=== PATIENT | male | born 1940 | race Caucasian/White ===

== ENCOUNTER 2017-01-26 18:45 | Emergency (ER) | payer OTHER ==
[2017-01-26 19:56] LABS: SPECIFIC GRAVITY 1.015 (1.001-1.030); URINE BILIRUBIN NEGATIVE (NEGATIVE); URINE BLOOD TRACE (NEGATIVE); URINE GLUCOSE (UA) NEGATIVE (NEGATIVE); URINE LEUKOCYTE ESTERASE NEGATIVE (NEGATIVE); URINE NITRITE NEGATIVE (NEGATIVE); URINE PROTEIN NEGATIVE (NEGATIVE); URINE UROBILINOGEN NORMAL (0-1 mg/dl)
[2017-01-26 20:17] LABS: URINE APPEARANCE CLEAR; URINE COLOR YELLOW
[2017-01-26] MEDS ORDERED: CEPHALEXIN 250 MG CAPSULE ONE (20:32)
[2017-01-26 20:33] LABS: URINE BACTERIA 0; URINE EPITHELIAL CELLS 0 /hpf; URINE RBC 0-2 /hpf; URINE WBC 0-2 /hpf
== END 2017-01-26 20:45 | disposition home or self-care (01) ==
LOC: ED 18:45
DX: R30.0 Dysuria (principal); N40.0 Benign prostatic hyperplasia without lower urinary tract symptoms; I10 Essential (primary) hypertension

== ENCOUNTER 2017-02-10 14:46 | Emergency (ER) | payer OTHER ==
[2017-02-10] MEDS ORDERED: ONDANSETRON 4 MG/2ML 2 ML VIAL ONE (15:55)
[2017-02-10] MEDS ORDERED: SODIUM CHLORIDE 0.9% 1,000 ML ONE (15:55)
[2017-02-10] MEDS ORDERED: PANTOPRAZOLE SODIUM 40 MG VIAL IV ONE (15:55)
[2017-02-10] MEDS ORDERED: HYDROMORPHONE HCL 1 MG/ML SYRINGE ONE ×3 (15:55→18:27)
[2017-02-10 16:12] LABS: BASO % 0.2 % (0.2-1.0); HEMATOCRIT 40.3 % (32.0-52.0); HEMOGLOBIN 13.3 gm/l (14.0-18.0); IMM NEUT # 0.3 K/mm3 (0-0.2); IMM NEUT% 1.3 % (0-1); LYMPH % 4.6 % (15-45); MEAN CELL VOLUME 89.8 fl (80.0-94.0); MEAN CORPUSCULAR HEMOGLOBIN 29.6 pg (27.0-31.0); MONO # 1.3 (0.0-0.8); MONO % 6.2 % (4-12); NEUT % 87.7 % (43-75); PLATELET COUNT 242 K/mm3 (130-400); RED CELL DISTRIBUTION WIDTH 12.8 % (11.5-14.5)
[2017-02-10 16:13] LABS: SPECIFIC GRAVITY 1.015 (1.001-1.030); URINE BILIRUBIN NEGATIVE (NEGATIVE); URINE BLOOD 2+ (NEGATIVE); URINE GLUCOSE (UA) NEGATIVE (NEGATIVE); URINE LEUKOCYTE ESTERASE 2+ (NEGATIVE); URINE NITRITE POSITIVE (NEGATIVE); URINE PROTEIN 2+ (NEGATIVE); URINE UROBILINOGEN NORMAL (0-1 mg/dl)
[2017-02-10 16:20] LABS: URINE APPEARANCE SL CLOUDY; URINE COLOR YELLOW
[2017-02-10 16:21] LABS: ALB/GLOB RATIO 1.5 (>1.0); ALBUMIN 4.4 gm/dL (3.5-5.7); CALCIUM 9.5 mg/dL (8.6-10.3)
[2017-02-10] MEDS ORDERED: CEFTRIAXONE 1 GRAM DUPLEX 50 ML IV ONE (16:24)
[2017-02-10 16:34] LABS: URINE WBC >100 /hpf
[2017-02-10 16:35] LABS: URINE BACTERIA 3+; URINE EPITHELIAL CELLS 0-2 /hpf
[2017-02-10] MEDS: IOPAMIDOL 370 (76%) 100 ML VIAL IV ONE (17:03)
--- NOTE | 2017-02-10 17:31 | CT ---
ABD/PELVIS W/ CON COMPARISON: CT abdomen and pelvis, 08/21/2009 HISTORY: Upper abdominal pain, back pain, and urinary tract infection. Technique: Contrast oral contrast. Intravenous injection contrast 100 mL Isovue 370. Using a [employer] Aquilion [address] scanner, images were obtained from the diaphragm to the floor the pelvis. An automated dose reduction technique was used to minimize patient radiation dose. Dose information: CTDIvol (mGy): 8.00 DLP(mGycm): 1051.80 FINDINGS: Lung bases: Scar or subsegmental atelectasis in the left lower lobe base. Inferior mediastinum and heart: Aortic annular calcification. Liver: Multiple 2.4 cm and multiple much smaller nonenhancing foci, most likely cysts. Gallbladder:Normal. Bile ducts: Normal. Pancreas: Normal. Spleen: Normal. Adrenal glands: Mild hypertrophy of the left adrenal gland. Normal right adrenal gland Kidneys: Normal enhancement of the right kidney. No hydronephrosis. Lower pole parapelvic cyst. Somewhat heterogeneous enhancement of the interpolar left kidney. Small simple cysts in the lower pole. Edema in the perinephric fat. Ureters: Normal Urinary bladder: Normal. Prostate gland and seminal vesicles: Normal. Blood vessels: Normal Lymph nodes: Normal Stomach: Normal Duodenum: Normal Small intestine: Normal Appendix: Removed. Colon: Normal Abdominal wall and supporting musculature: Small umbilical hernia containing fat. Bones: No acute finding. Degenerative changes. IMPRESSION: 1. CT findings evidence of pyelonephritis of the left kidney. 2. Incidentally noted hepatic and bilateral renal cysts, hypertrophy of the left adrenal gland, small umbilical hernia containing fat, aortic annular calcification, and degenerative changes in the spine. The report was sent to the emergency department electronic medical record system, 02/10/2017 at 17:32
[2017-02-10 18:19] LABS: BAND 2 % (0-10); BASOPHIL 0 % (0-1); EOSINOPHIL 0 % (1-3); LYMPHOCYTE 2 % (15-45); MONOCYTE 8 % (4-12); NEUTROPHILS 88 % (43-75); PLATELET ESTIMATE NORMAL (NORMAL); TOTAL CELLS COUNTED 100
== END 2017-02-10 18:55 | disposition home or self-care (01) ==
LOC: ED 14:46
DX: N12 Tubulo-interstitial nephritis, not specified as acute or chronic (principal); I10 Essential (primary) hypertension
CPT/HCPCS: 83605; 83690; 85025; 87040 ×2; 80053; 81001; 74177; 96375 ×3; 96376; 99284 ×2; 96365; 36415; J1170 ×3; C9113; J2405; J7030; Q9967; J0696

== ENCOUNTER 2017-02-11 20:27 | Inpatient (IN) | payer OTHER ==
[2017-02-11 21:37] LABS: ABSOLUTE NEUTROPHIL COUNT 15.2 K/mm3 (1.8-7.7); BASO % 0.2 % (0.2-1.0); EOS # 0.1 (0.0-0.5); EOS % 0.6 % (0.9-2.9); HEMATOCRIT 36.6 % (32.0-52.0); HEMOGLOBIN 12.2 gm/l (14.0-18.0); IMM NEUT # 0.1 K/mm3 (0-0.2); IMM NEUT% 0.7 % (0-1); LYMPH # 0.8 (1.0-4.8); LYMPH % 4.6 % (15-45); MEAN CELL VOLUME 89.9 fl (80.0-94.0); MEAN CORPUSCULAR HGB CONC 33.3 g/dl (33.0-37.0); MEAN PLATELET VOLUME 9.2 fl (7.4-10.4); MONO # 0.9 (0.0-0.8); MONO % 5.1 % (4-12); NEUT % 88.8 % (43-75); PLATELET COUNT 198 K/mm3 (130-400); RED CELL DISTRIBUTION WIDTH 12.8 % (11.5-14.5)
[2017-02-11] MEDS ORDERED: LACTATED RINGERS 1,000 ML ONE (21:39)
[2017-02-11] MEDS ORDERED: OXYCODONE HCL 5 MG TABLET ONE ×2 (21:39→21:57)
[2017-02-11 21:47] LABS: ALB/GLOB RATIO 1.3 (>1.0); CALCIUM 8.9 mg/dL (8.6-10.3)
[2017-02-11] MEDS ORDERED: PIPERACILLIN-TAZO PREMIX BAG 50 ML IV ONE (22:12)
[2017-02-11] MEDS ORDERED: SODIUM CHLORIDE 0.9% FLUSH 10 ML ONE (23:36)
[2017-02-11 23:44] VITALS: BMI 32.1
[2017-02-12] MEDS ORDERED: BLISTEX LIPSTICK 1 EACH TP PRN (00:48)
[2017-02-12] MEDS ORDERED: MENTHOL/CETYLPYRD 1 EACH LOZENGE PO PRN (00:48)
[2017-02-12] MEDS ORDERED: MAGNESIUM HYDROXIDE 30 ML UDCUP PO PRN (00:48)
[2017-02-12] MEDS ORDERED: SODIUM CHLORIDE 0.9% 100 ML IV PRN (00:48)
[2017-02-12] MEDS ORDERED: BISACODYL 10 MG SUP PR PRN (00:48)
[2017-02-12] MEDS ORDERED: BISACODYL 5 MG TABLET.EC PO PRN (00:48)
[2017-02-12] MEDS ORDERED: TRAZODONE HCL 50 MG TABLET PO PRN (00:50)
[2017-02-12] MEDS ORDERED: ONDANSETRON 4 MG/2ML 2 ML VIAL IV PRN (00:52)
[2017-02-12] MEDS ORDERED: PUMP TUBING ONE (01:41)
[2017-02-12] MEDS: SODIUM CHLORIDE 0.9% 1,000 ML IV SCH ×3 (01:47→18:22)
[2017-02-12] MEDS ORDERED: PIPERACILLIN-TAZO PREMIX BAG 50 ML IV ONE (03:32)
[2017-02-12] MEDS ORDERED: PIPERACILLIN-TAZO PREMIX BAG 3.375 G in Premix (D5W) 50 ml 1 EACH IV SCH (06:00)
[2017-02-12] MEDS ORDERED: LEVOTHYROXINE SODIUM 175 MCG TABLET PO SCH ×2 (06:00→12:06)
--- NOTE | 2017-02-12 07:36 | HP ---
Chong Sharma Jr : 1940 CHIEF COMPLAINT: Not feeling well. HISTORY OF PRESENT ILLNESS: The patient is a 76-year-old male who has not been feeling well for the past several days. He was evaluated yesterday and found to have a urinary tract infection and was provided prescription for Keflex, Zofran, and Percocet. His symptoms did not improve. He has got back pain, abdominal pain, nausea, and headaches. Over the past day his symptoms have not improved and then today he received a phone call that he needed to return to the emergency department because he had a positive blood culture. Currently his symptoms in the prior two days have not improved and he continues to have a headache, body aches, abdominal pain, and nausea. His appetite is good however. There has been some difficulty with urination just that it is harder to go, not so much burning. He denies any fevers. REVIEW OF SYSTEMS: General: Body aches, not feeling well. No fevers. ENT: Sinus congestion that is chronic. No throat pain. Cardiovascular: No chest pain or pressure. Respiratory: No difficulty in breathing. Abdomen: Abdominal pain and nausea, no vomiting. : Pain with urination. Musculoskeletal: Back pain. Neurologic: Headache. PAST MEDICAL HISTORY: Includes hypothyroidism, aortic valve, benign prostatic hypertrophy, chronic kidney disease stage III, bipolar, hypertension, hearing loss, herniated lumbar disc, hyperlipidemia, insomnia, restless legs. MEDICATIONS: Include: 1. Levothyroxine. 2. MS Contin. 3. Oxycodone. 4. Tizanidine. 5. Mirapex. 6. Trazodone. 7. Tamsulosin. 8. Gabapentin. 9. Furosemide. 10. Losartan. 11. Pravastatin. 12. Effexor. 13. Dorzolamide solution. 14. Metoprolol. PAST SURGICAL HISTORY: Includes an appendectomy, hernia repair, lumbar fusion, aortic valve replacement, cataract surgery. FAMILY MEDICAL HISTORY: Includes diabetes and heart disease. SOCIAL HISTORY: He lives with his spouse. He has a sister in the area. He does have children. No alcohol, tobacco, or drugs. He quit smoking in the past. 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 ALLERGIES: TAPE AND LYRICA. PHYSICAL EXAMINATION: VITAL SIGNS: Temperature 98.5, heart rate 76, blood pressure 121/62, saturating 96% on room air. GENERAL: He is alert and oriented in no acute distress. HEENT: Normocephalic, atraumatic. No tenderness to palpation. His mucous membranes are moist. Pupils are equal, round, and reactive. Extraocular muscles intact. There is no scleral icterus or conjunctival injection. NECK: Supple. Trachea is midline. CARDIOVASCULAR: Regular, positive S1, S2 He has peripheral pulses bilaterally PT and radially. No peripheral edema. RESPIRATORY: Clear to auscultation bilaterally. No rhonchi or wheezing. ABDOMEN: Tender, soft, no rebound, no guarding, slight distention. MUSCULOSKELETAL: He is moving all extremities without difficulty. They are nontender. He has left greater than right CVA tenderness. NEUROLOGIC: He is alert and oriented. LABORATORY STUDIES: Sodium 135, potassium 4.0, chloride 103, carbon dioxide 22, BUN 36, creatinine 1.9, glucose 120. White blood count 17.1, hemoglobin 12.2, hematocrit 36.6, platelet count of 198. VBG lactate is 0.8. DIAGNOSTICS: CT of abdomen and pelvis was obtained evidence of pyelonephritis to the left kidney, hepatic and bilateral renal cyst, hypertrophy of the left adrenal glands, umbilical hernia containing fat, aortic annular calcifications, and degenerative changes of the spine. ASSESSMENT AND PLAN: A 76-year-old male with pyelonephritis and bacteremia was called to return for further therapeutic intervention today. He is provided with a dose of Zosyn, pain medication, and IV fluids in the emergency department. 1. Sepsis, not severe. He does have an elevated white count, a slightly elevated creatinine from his baseline. He has Gram negative bacilli in his blood cultures and evidence of pyelonephritis on CT. We will continue to provide Zosyn until we have sensitivities from the blood culture from the Gram negative bacilli. 2. Chronic kidney disease stage III. He has a slight bump in his creatinine currently at 1.9. We will give him IV fluids and monitor. 3. Pyelonephritis. We will continue Zosyn and monitor for symptoms improvement. 4. Aortic valve replacement, stable. He has no evidence or complaints of chest pain at this time. 5. Hypertension. We will continue his home medications, stable. 6. Hypothyroidism. We will continue his home medications. 7. Chronic pain from lumbar disc disease. We will continue his home medications. 8. Benign prostatic hypertrophy, stable. May be contributing to difficulty with urination, will monitor. Patient is a do not resuscitate. JOB: [id number] CC: Dr. Maguire
--- NOTE | 2017-02-12 07:52 | PDOC36 ---
Provider Note Subject: Patient feeling slightly improved since admission, no longer nauseous but continues to have pain. It is difficult to determine if his pain is acute on chronic or chronic in nature. For his headache, he takes sumatriptan and would like some of this. He has pyelonpehritis and bacteremia with gram negative bacilli
[2017-02-12] MEDS ORDERED: SUMATRIPTAN SUCCINATE 50 MG TABLET PO PRN (08:00)
[2017-02-12] MEDS ORDERED: MORPHINE SULFATE 15 MG PO SCH (09:00)
[2017-02-12] MEDS ORDERED: LEVOTHYROXINE SODIUM 150 MCG TABLET PO SCH (09:00)
[2017-02-12] MEDS: GABAPENTIN 100 MG CAPSULE PO SCH ×2 (09:08→20:56)
[2017-02-12] MEDS: GEMFIBROZIL 600 MG TABLET PO SCH (09:08)
[2017-02-12] MEDS: ASPIRIN CHEWTAB 81 MG TABLET PO SCH (09:08)
[2017-02-12] MEDS: LOSARTAN POTASSIUM 50 MG TABLET PO SCH (09:09)
[2017-02-12] MEDS: DOCUSATE SODIUM 100 MG CAPSULE PO SCH ×2 (09:09→20:56)
[2017-02-12] MEDS: FUROSEMIDE 40 MG TABLET PO SCH (09:09)
[2017-02-12] MEDS: TAMSULOSIN HCL 0.4 MG CAPSULE.DR PO SCH (09:09)
[2017-02-12] MEDS: MORPHINE SULFATE 15 MG TAB.PRT.SR PO SCH (09:09)
[2017-02-12] MEDS: LATANOPROST 0.005% 50 GTTS/2.5 ML BOT SOLN.DROP OU SCH ×2 (09:19→20:58)
[2017-02-12] MEDS: TIZANIDINE HCL 4 MG TABLET PO SCH ×3 (09:20→20:56)
[2017-02-12] MEDS: VENLAFAXINE HCL XR 150 MG CAPSULE.DR PO SCH (09:20)
[2017-02-12] MEDS: METOPROLOL SUCCINATE 25 MG TAB.ER.24H PO SCH ×2 (09:20→20:56)
[2017-02-12] MEDS: PRAMIPEXOLE DI-HCL 0.25 MG TABLET PO SCH (09:20)
[2017-02-12] MEDS: PRAVASTATIN SODIUM 40 MG TABLET PO SCH (09:20)
[2017-02-12 09:36] LABS: CALCIUM 8.5 mg/dL (8.6-10.3); HEMATOCRIT 35.1 % (32.0-52.0); HEMOGLOBIN 11.4 gm/l (14.0-18.0); MEAN CELL VOLUME 92.1 fl (80.0-94.0); MEAN CORPUSCULAR HEMOGLOBIN 29.9 pg (27.0-31.0); MEAN CORPUSCULAR HGB CONC 32.5 g/dl (33.0-37.0); RED CELL DISTRIBUTION WIDTH 12.9 % (11.5-14.5)
[2017-02-12] MEDS: OXYCODONE HCL 5 MG TABLET PO PRN (11:53)
[2017-02-12] MEDS: ACETAMINOPHEN 325 MG TABLET PO PRN ×2 (11:53→19:32)
[2017-02-12] MEDS: PIPERACILLIN-TAZO PREMIX BAG 3.375 G in Premix (D5W) 50 ml 1 EACH IV SCH ×3 (11:53→23:58)
[2017-02-12] MEDS: SUMATRIPTAN SUCCINATE 50 MG TABLET PO PRN ×2 (12:08→19:28)
[2017-02-12] MEDS: LEVOTHYROXINE SODIUM PO SCH ×2 (12:14)
[2017-02-13] MEDS: SODIUM CHLORIDE 0.9% 1,000 ML IV SCH ×2 (01:55→10:25)
[2017-02-13] MEDS: OXYCODONE HCL 5 MG TABLET PO PRN ×3 (05:09→20:58)
[2017-02-13] MEDS: PIPERACILLIN-TAZO PREMIX BAG 3.375 G in Premix (D5W) 50 ml 1 EACH IV SCH (05:09)
[2017-02-13 06:36] LABS: ABSOLUTE NEUTROPHIL COUNT 6.8 K/mm3 (1.8-7.7); BASO % 0.2 % (0.2-1.0); EOS # 0.1 (0.0-0.5); EOS % 0.9 % (0.9-2.9); HEMATOCRIT 35.4 % (32.0-52.0); HEMOGLOBIN 11.8 gm/l (14.0-18.0); IMM NEUT% 0.4 % (0-1); LYMPH # 0.9 (1.0-4.8); LYMPH % 10.2 % (15-45); MEAN CELL VOLUME 88.5 fl (80.0-94.0); MEAN CORPUSCULAR HEMOGLOBIN 29.5 pg (27.0-31.0); MEAN CORPUSCULAR HGB CONC 33.3 g/dl (33.0-37.0); MEAN PLATELET VOLUME 9.8 fl (7.4-10.4); MONO # 0.7 (0.0-0.8); MONO % 8.2 % (4-12); NEUT % 80.1 % (43-75); PLATELET COUNT 170 K/mm3 (130-400)
[2017-02-13 06:50] LABS: CALCIUM 8.6 mg/dL (8.6-10.3)
[2017-02-13] MEDS: ACETAMINOPHEN 325 MG TABLET PO PRN ×2 (07:34→15:26)
[2017-02-13] MEDS: LEVOTHYROXINE SODIUM PO SCH ×2 (07:34)
[2017-02-13] MEDS: SUMATRIPTAN SUCCINATE 50 MG TABLET PO PRN ×2 (07:35→15:26)
[2017-02-13] MEDS: LATANOPROST 0.005% 50 GTTS/2.5 ML BOT SOLN.DROP OU SCH ×2 (09:03→20:54)
[2017-02-13] MEDS: TAMSULOSIN HCL 0.4 MG CAPSULE.DR PO SCH (09:03)
[2017-02-13] MEDS: PRAMIPEXOLE DI-HCL 0.25 MG TABLET PO SCH (09:03)
[2017-02-13] MEDS: ASPIRIN CHEWTAB 81 MG TABLET PO SCH (09:03)
[2017-02-13] MEDS: LOSARTAN POTASSIUM 50 MG TABLET PO SCH (09:03)
[2017-02-13] MEDS: FUROSEMIDE 40 MG TABLET PO SCH (09:03)
[2017-02-13] MEDS: MORPHINE SULFATE 15 MG TAB.PRT.SR PO SCH (09:03)
[2017-02-13] MEDS: GABAPENTIN 100 MG CAPSULE PO SCH ×2 (09:03→20:55)
[2017-02-13] MEDS: GEMFIBROZIL 600 MG TABLET PO SCH (09:03)
[2017-02-13] MEDS: TIZANIDINE HCL 4 MG TABLET PO SCH (09:04)
[2017-02-13] MEDS: VENLAFAXINE HCL XR 150 MG CAPSULE.DR PO SCH (09:04)
[2017-02-13] MEDS: PRAVASTATIN SODIUM 40 MG TABLET PO SCH (09:04)
[2017-02-13] MEDS: METOPROLOL SUCCINATE 25 MG TAB.ER.24H PO SCH ×2 (09:04→20:55)
[2017-02-13] MEDS: DOCUSATE SODIUM 100 MG CAPSULE PO SCH ×2 (09:07→20:55)
--- NOTE | 2017-02-13 10:24 | PDOC43 ---
- Subjective Chief Complaint: Pyelo Patient reports feeling ok, but did have to get up a lot to urinate during the night due to IV, and has had 3 loose BMs this am. Would like to get rid of IV. Didn't sleep so well. Otherwise doing ok. - Objective Vital Signs Temperature 101.3 F 02/13/17 07:00 Pulse Rate 69 02/13/17 07:00 Respiratory Rate 18 02/13/17 07:00 Blood Pressure 123/75 02/13/17 07:00 O2 Saturation by Pulse Oximetry 96 02/13/17 07:00 Oxygen Delivery Method Room Air Oxygen Flow Rate 0 Vital Signs Last 12 Hours Temp Pulse Resp BP Pulse Ox 02/13/17 07:00 101.3 F 69 17 123/75 96 02/13/17 01:55 98.3 F 69 18 121/69 99 02/13/17 01:00 18 Intake and Output 02/11/17 02/12/17 02/13/17 23:59 23:59 23:59 Intake Total 3459 1812 Output Total 3450 1200 Balance 9 612 General: Alert, Cooperative, No Acute Distress HEENT: Atraumatic Lungs: Clear to Auscultation Bilaterally, Normal Air Movement Cardiovascular: Regular Rate and Rhythm Abdomen: Soft, Tenderness (some LUQ CVA tenderness to percussion, Some LUQ abd pain to palp, minor.), Normal Bowel Sounds, Non-Distended, No Involuntary Guarding Extremities: No Edema Skin: Normal Color Neurological: Normal Speech, Other (alert, but sl hard of hearing.) Psych/Mental Status: Other Laboratory 02/13/17 06:00 02/13/17 06:00 02/13/17 06:00 RBC 4.00 L Estimated GFR 50 L Blood culture = E coli, sens to all but TMP/SMX Current Medications: Current meds reviewed in EMR. Active Medications Acetaminophen (Tylenol) 650 mg PO Q6H PRN PRN Reason: Pain or Temperature > 100.5 F Last Admin: 02/13/17 07:34 Dose: 650 mg Aspirin (Aspirin Chewtab) 81 mg PO DAILY [facility] Last Admin: 02/13/17 09:03 Dose: 81 mg Benzocaine/Menthol (Cepacol) 1 each PO PRN PRN PRN Reason: Sore Throat Bisacodyl (Dulcolax) 10 mg NV DAILY PRN PRN Reason: Constipation Bisacodyl (Dulcolax) 5 mg PO DAILY PRN PRN Reason: Constipation Docusate Sodium (Colace) 100 mg PO BID [facility] Last Admin: 02/13/17 09:07 Dose: Not Given Furosemide (Lasix) 40 mg PO DAILY [facility] Last Admin: 02/13/17 09:03 Dose: 40 mg Gabapentin (Neurontin) 100 mg PO BID [facility] Last Admin: 02/13/17 09:03 Dose: 100 mg Gemfibrozil (Lopid) 600 mg PO DAILY [facility] Last Admin: 02/13/17 09:03 Dose: 600 mg Sodium Chloride (Sodium Chloride 0.9%) 100 mls @ 25 mls/hr IV PRN PRN PRN Reason: Flush Sodium Chloride (Sodium Chloride 0.9%) 1,000 mls @ 125 mls/hr IV .Q8H [facility] Last Admin: 02/13/17 01:55 Dose: 125 mls/hr Piperacillin/Tazobactam/Dextrose 3.375 g/ Premix (D5W) 50 ml 50 mls @ 100 mls/ hr IV Q6HR [facility] Last Admin: 02/13/17 05:09 Dose: 100 mls/hr Latanoprost (Xalatan) 1 gtts OU BID [facility] Last Admin: 02/13/17 09:03 Dose: 1 gtts Levothyroxine Sodium 150 mcg/ (Levothyroxine Sodium 175 mcg) 325 mcg PO QAMAC [facility] Last Admin: 02/13/17 07:34 Dose: 325 mcg Losartan Potassium (Cozaar) 50 mg PO DAILY [facility] Last Admin: 02/13/17 09:03 Dose: 50 mg Magnesium Hydroxide (Milk Of Magnesia) 30 ml PO DAILY PRN PRN Reason: Constipation Metoprolol Succinate (Toprol Xl) 25 mg PO BID [facility] Last Admin: 02/13/17 09:04 Dose: 25 mg Morphine Sulfate (Ms Contin) 15 mg PO DAILY [facility] Stop: 02/16/17 08:59 Last Admin: 02/13/17 09:03 Dose: 15 mg Ondansetron HCl (Zofran) 4 mg IV Q6H PRN PRN Reason: Nausea/Vomiting Oxycodone HCl (Roxicodone) 5 mg PO Q8H PRN PRN Reason: Pain Last Admin: 02/13/17 05:09 Dose: 5 mg Petrolatum/Paraffin/Mineral Oil (Blistex) 1 each TP PRN PRN PRN Reason: Dry and/or chapped lips Pramipexole Dihydrochloride (Pramipexole Dihydrochloride) 0.25 mg PO DAILY [facility] Last Admin: 02/13/17 09:03 Dose: 0.25 mg Pravastatin Sodium (Pravachol) 40 mg PO DAILY [facility] Last Admin: 02/13/17 09:04 Dose: 40 mg Sodium Chloride (Normal Saline 10ml Flush) 10 - 50 ml IV PRN PRN PRN Reason: IV Flush Last Admin: 02/12/17 01:49 Dose: 10 ml Sodium Chloride (Normal Saline 10ml Flush) 10 ml IV Q8HR [facility] Last Admin: 02/13/17 00:13 Dose: Not Given Sumatriptan Succinate (Imitrex) 100 mg PO Q2H PRN Last Admin: 02/13/17 07:35 Dose: 100 mg Tamsulosin HCl (Flomax) 0.4 mg PO DAILY [facility] Last Admin: 02/13/17 09:03 Dose: 0.4 mg Tizanidine HCl (Zanaflex) 4 mg PO TID [facility] Last Admin: 02/13/17 09:04 Dose: 4 mg Trazodone HCl (Desyrel) 100 mg PO BEDTIME PRN PRN Reason: Insomnia Venlafaxine HCl (Effexor Xr) 150 mg PO DAILY [facility] Last Admin: 02/13/17 09:04 Dose: 150 mg - Problems: Assessment/Plan (1) Pyelonephritis due to Escherichia coli Status: AcuteAssessment/Plan: On Zosyn, but with culture results, anticipate switch to FQ. Fever this am. (2) Bacteremia due to Escherichia coli Status: AcuteAssessment/Plan: Positive on 02/10. Subsequent results pending. Anticipate going to FQ PO today, tx for 2 wk. (3) Bipolar disorder Qualifiers: Active/Remission status: remission status unspecified Qualifier Code: ( F31.9) Bipolar disorder, unspecified Status: ChronicAssessment/Plan: Appears stable this am. Continue medication tx VTE Prophylaxis: Mechanical, ambulatory patient. Disposition: Would anticipate return to home once improving, and showing that pt can keep oral meds down well. Suspect home /2 Additional Comments: Some loose stools reported. Will monitor for change/worsening.
[2017-02-13] MEDS: LEVOFLOXACIN 250 MG TABLET PO SCH (12:04)
[2017-02-13] MEDS ORDERED: CEPHALEXIN 500 MG CAPSULE PO SCH (13:00)
[2017-02-14] MEDS: ACETAMINOPHEN 325 MG TABLET PO PRN (02:24)
[2017-02-14] MEDS: OXYCODONE HCL 5 MG TABLET PO PRN (02:24)
[2017-02-14] MEDS ORDERED: LEVOTHYROXINE SODIUM 175 MCG TABLET ONE (07:09)
[2017-02-14] MEDS ORDERED: LEVOTHYROXINE SODIUM 150 MCG TABLET ONE (07:09)
[2017-02-14] MEDS: LEVOTHYROXINE SODIUM PO SCH ×2 (07:11)
[2017-02-14 07:58] VITALS: BP 150/86
[2017-02-14] MEDS: LATANOPROST 0.005% 50 GTTS/2.5 ML BOT SOLN.DROP OU SCH (08:22)
[2017-02-14] MEDS: GEMFIBROZIL 600 MG TABLET PO SCH (08:22)
[2017-02-14] MEDS: MORPHINE SULFATE 15 MG TAB.PRT.SR PO SCH (08:23)
[2017-02-14] MEDS: GABAPENTIN 100 MG CAPSULE PO SCH (08:23)
[2017-02-14] MEDS: LEVOFLOXACIN 250 MG TABLET PO SCH (08:23)
[2017-02-14] MEDS: PRAVASTATIN SODIUM 40 MG TABLET PO SCH (08:23)
[2017-02-14] MEDS: METOPROLOL SUCCINATE 25 MG TAB.ER.24H PO SCH (08:23)
[2017-02-14] MEDS: LOSARTAN POTASSIUM 50 MG TABLET PO SCH (08:23)
[2017-02-14] MEDS: PRAMIPEXOLE DI-HCL 0.25 MG TABLET PO SCH (08:23)
[2017-02-14] MEDS: FUROSEMIDE 40 MG TABLET PO SCH (08:23)
[2017-02-14] MEDS: TAMSULOSIN HCL 0.4 MG CAPSULE.DR PO SCH (08:23)
[2017-02-14] MEDS: ASPIRIN CHEWTAB 81 MG TABLET PO SCH (08:23)
[2017-02-14] MEDS: VENLAFAXINE HCL XR 150 MG CAPSULE.DR PO SCH (08:29)
[2017-02-14] MEDS: DOCUSATE SODIUM 100 MG CAPSULE PO SCH (08:43)
--- NOTE | 2017-02-15 09:51 | DS ---
RAMÍREZ RAMIREZ JR DATE OF ADMISSION: February 11, 2017 DATE OF DISCHARGE: February 14, 2017 ADMIT DIAGNOSES: 1. Pyelonephritis. 2. Sepsis with bacteremia secondary to above. 3. Multiple other chronic medical problems at baseline. DISCHARGE DIAGNOSES: 1. Pyelonephritis. 2. Sepsis with bacteremia secondary to above. 3. Multiple other chronic medical problems at baseline. 4. Final blood cultures growing out Escherichia coli sensitive fluoroquinolones. HISTORY OF PRESENT ILLNESS: Please see Dr. Echols's note for details. Briefly, Mr. Ramirez is a 76-year-old male who was found to have a urinary tract infection in the emergency room. Blood cultures were drawn at that time, and he was sent home on Keflex. However, his blood cultures came back growing out gram negative rods. He was contacted and asked to come back in. When he came in, he was a bit more ill and was found to have evidence of pyelonephritis with sepsis. He was subsequently admitted to the hospitalist service. HOSPITAL COURSE: He was admitted, initially started on Zosyn and IV fluids. He did well with a very prompt improvement in his condition. His final culture results did grow out Escherichia coli that was sensitive to fluoroquinolones, so his antibiotics were transitioned over to Levaquin. He continued to do well. By day of discharge he was feeling very well and anxious to go home. He still does get occasional fevers though he is able to tolerate orals without difficulty. We have elected to discharge him home on his usual medications plus Levaquin with plans for close outpatient followup. DISCHARGE MEDICATIONS: Levaquin 500 mg orally daily times 14 days. All other medications as prior to admit as follows. 1. Effexor 150 mg orally daily. 2. Zanaflex 4 mg orally three times daily. 3. Flomax 0.4 mg orally daily. 4. Cialis as needed. 5. Sumatriptan as needed. 6. Pravastatin 40 mg orally daily. 7. Mirapex 0.25 mg orally daily. 8. Morphine sulfate 15 mg orally daily. 9. Metoprolol 25 mg orally twice daily. 10. Losartan 50 mg orally daily. 11. Levothyroxine 150 mcg tablets plus 175 mcg orally daily (325 mcg orally daily). 12. Xalatan eyedrops as prior to admit. 13. Gemfibrozil 600 mg orally twice daily. 14. Neurontin 100 mg orally twice daily. 15. Lasix 40 mg orally daily. 16. Aspirin 81 mg orally daily. 17. Trazodone 100 mg orally at bedtime. 18. Oxycodone 5 mg orally every eight hours as needed. 19. Zofran 4 mg orally six hours as needed. DISCHARGE FOLLOW UP: Will be with Dr. Maguire in the next one to two weeks, sooner as needed. Cc: Arnulfo Maguire M.D.
== END 2017-02-14 11:55 | disposition home or self-care (01) | DRG 872 ==
LOC: ED 20:27 → MS 22:01
PROVIDERS: ADMIT Family Medicine; ATTEND Family Medicine
DX: A41.51 Sepsis due to Escherichia coli [E. coli] (principal); N16 Renal tubulo-interstitial disorders in diseases classified elsewhere; I12.9 Hypertensive chronic kidney disease with stage 1 through stage 4 chronic kidney disease, or unspecified chronic kidney disease; N18.3 Chronic kidney disease, stage 3 (moderate); E03.9 Hypothyroidism, unspecified; G89.29 Other chronic pain; M51.36 Other intervertebral disc degeneration, lumbar region; N40.0 Benign prostatic hyperplasia without lower urinary tract symptoms; Z66 Do not resuscitate; F31.9 Bipolar disorder, unspecified; E78.5 Hyperlipidemia, unspecified